=== PATIENT | female | born 1955 | race Caucasian/White ===

== ENCOUNTER 2017-02-14 07:22 | Outpatient (CLI) | payer OTHER | END 2017-02-14 07:23 | disposition home or self-care (01) | LOC: BICMAMMO 07:22 | PROVIDERS: ATTEND Obstetrics & Gynecology | DX: Z12.31 Encounter for screening mammogram for malignant neoplasm of breast (principal) | CPT/HCPCS: 77067; G0202 ==

== ENCOUNTER 2018-03-30 08:15 | Outpatient (CLI) | payer OTHER ==
--- NOTE | 2018-03-30 10:26 | MMO ---
BILATERAL SCREENING MAMMOGRAM: Indication: Annual exam. Comparison: 01-19-16 FINDINGS: This study is interpreted with the assistance of computer aided detection. Breast parenchyma is heterogeneously dense with limits sensitivity of mammography. There is a small calcification seen within the left breast which is benign appearing. No suspicious mass, cluster of microcalcifications, or area of architectural distortion is evident. IMPRESSION: BIRADS category 2 - benign. Recommend routine annual mammographic screening. POS: [facility]
== END 2018-03-30 08:16 | disposition home or self-care (01) ==
LOC: SCSMAMMO 08:15
PROVIDERS: ATTEND Obstetrics & Gynecology
DX: Z12.31 Encounter for screening mammogram for malignant neoplasm of breast (principal)
CPT/HCPCS: 77067